=== PATIENT | female | born 1990 | race Caucasian/White ===

== ENCOUNTER 2017-08-27 22:25 | Emergency (ER) | payer MEDICAID ==
--- NOTE | 2017-08-27 22:43 | EDM.PDOCBH ---
ED HPI GENERAL MEDICAL PROBLEM - General Stated Complaint: OD Time Seen by Provider: 08/27/17 22:30 Source of Information: Reports: EMS, RN History Limitations: Reports: Altered Mental Status - History of Present Illness INITIAL COMMENTS - FREE TEXT/NARRATIVE: The patient is brought to the ED by EMS. She is apparently in treatment at [facility]. We are told that she went for a walk with a friend around 19:30, and when she returned, she was lethargic. EMS was called, however, they found the patient to be combative. EMS brought with them a prescription for the patient for gabapentin 300 mg, prescribed 90 tablets on 08/17/2017, one tablet TID, with only 12 tablets remaining. If the patient had been taking them as prescribed, there should be 57 tablets remaining, indicating 45 tablets missing. Also found on the patient was a non-labeled prescription bottle with 5 tablets of what we have identified as quetiapine (Seroquel) 200 mg. Here in the ED, the patient is found to be hemodynamically stable although lethargic, responsive to noxious stimuli, but unable to provide any history. As the patient has not previously been to this facility, we have no prior medical records to rely on. - Related Data Allergies Allergy/AdvReac Type Severity Reaction Status Date / Time No Known Allergies Allergy Verified 08/28/17 04:10 ED ROS GENERAL - Review of Systems Review Of Systems: Unable To Obtain ED EXAM, BEHAVIORAL HEALTH - Physical Exam Exam: See Below Exam Limited By: Altered Mental Status General Appearance: WD/WN, No Apparent Distress, Lethargic (responds to noxous stimuli) Eye Exam: Bilateral Eye: Normal Inspection Ears: Normal External Exam Nose: Normal Inspection, No Blood Throat/Mouth: Normal Inspection, Normal Lips, No Airway Compromise Head: Atraumatic, Normocephalic Neck: Normal Inspection, Full Range of Motion Respiratory/Chest: No Respiratory Distress, Lungs Clear, Normal Breath Sounds, No Accessory Muscle Use Cardiovascular: Normal Peripheral Pulses, Regular Rate, Rhythm, No Edema, No Gallop, No JVD, No Murmur, No Rub GI/Abdominal: Normal Bowel Sounds, Soft, Non-Tender, No Organomegaly, No Distention, No Abnormal Bruit, No Mass (Female) Exam: Deferred Rectal (Female) Exam: Deferred Back Exam: Normal Inspection, Full Range of Motion, NT Extremities: Normal Inspection, Normal Range of Motion, No Pedal Edema, Normal Capillary Refill Neurological: No Motor/Sensory Deficits (moves all 4 extremities spontaneously) Psychiatric: Other (Unable to assess) Skin Exam: Warm, Dry, Intact, Normal color, No rash COURSE, BEHAVIORAL HEALTH COMP - Course Vital Signs: Last Vital Signs Temp 36.6 C 08/27/17 22:49 Pulse 66 08/27/17 22:49 Resp 22 H 08/27/17 22:49 BP 107/89 08/27/17 22:49 Pulse Ox 100 08/27/17 22:49 Orders, Labs, Meds: Active Orders 24 hr Category Date Time Status EKG Documentation Completion [RC] STAT Care 08/27/17 22:43 Active DRUG SCREEN, URINE [URCHEM] Stat Lab 08/27/17 22:46 Ordered HCG QUALITATIVE,URINE [URCHEM] Stat Lab 08/27/17 22:46 Ordered Laboratory Tests 08/27/17 08/27/17 08/27/17 Range/Units 22:46 22:46 22:46 WBC 11.43 H (3.98-10.04) K/mm3 RBC 5.21 (3.98-5.22) M/mm3 Hgb 13.2 (11.2-15.7) gm/L Hct 40.8 (34.1-44.9) % MCV 78.3 L (79.4-94.8) fl MCH 25.3 L (25.6-32.2) pg MCHC 32.4 (32.2-35.5) g/dl RDW Std Deviation 43.3 (36.4-46.3) fL Plt Count 403 H (182-369) K/mm3 MPV 10.1 (9.4-12.3) fl Neutrophils % (Manual) 69 H (40-60) % Band Neutrophils % 0 (0-10) % Lymphocytes % (Manual) 27 (20-40) % Atypical Lymphs % 0 % Monocytes % (Manual) 2 (2-10) % Eosinophils % (Manual) 2 (0.7-5.8) % Basophils % (Manual) 0 L (0.1-1.2) Platelet Estimate Increased RBC Morph Comment Normal Sodium (136-145) mEq/L Potassium (3.5-5.1) mEq/L Chloride (98-107) mEq/L Carbon Dioxide (21-32) mEq/L Anion Gap (5-15) BUN (7-18) mg/dL Creatinine (0.55-1.02) mg/dL Est Cr Clr Drug Dosing Estimated GFR (MDRD) (>60) mL/min BUN/Creatinine Ratio (14-18) Glucose (74-106) mg/dL Calcium (8.5-10.1) mg/dL Total Bilirubin (0.2-1.0) mg/dL AST (15-37) U/L ALT (14-59) U/L Alkaline Phosphatase (46-116) U/L Total Protein (6.4-8.2) g/dl Albumin (3.4-5.0) g/dl Globulin gm/dL Albumin/Globulin Ratio (1-2) TSH 3rd Generation (0.358-3.74) uIU/mL Urine HCG, Qual Negative (NEGATIVE) Salicylates (2.8-20) mg/dL Urine Opiates Screen Negative (NEGATIVE) Ur Buprenorphine Scrn Negative (NEGATIVE) Ur Oxycodone Screen Negative (NEGATIVE) Urine Methadone Screen Negative (NEGATIVE) Ur Propoxyphene Screen Negative (NEGATIVE) Acetaminophen (10-30) ug/mL Ur Barbiturates Screen Negative (NEGATIVE) Ur Tricyclics Screen Negative (NEGATIVE) Ur Phencyclidine Scrn Negative (NEGATIVE) Ur Amphetamine Screen Negative (NEGATIVE) U Methamphetamines Scrn Negative (NEGATIVE) U Benzodiazepines Scrn Negative (NEGATIVE) U Cocaine Metab Screen Negative (NEGATIVE) U Marijuana (THC) Screen Negative (NEGATIVE) Ethyl Alcohol (0.00) gm% 08/27/17 08/27/17 Range/Units 22:46 22:46 WBC (3.98-10.04) K/mm3 RBC (3.98-5.22) M/mm3 Hgb (11.2-15.7) gm/L Hct (34.1-44.9) % MCV (79.4-94.8) fl MCH (25.6-32.2) pg MCHC (32.2-35.5) g/dl RDW Std Deviation (36.4-46.3) fL Plt Count (182-369) K/mm3 MPV (9.4-12.3) fl Neutrophils % (Manual) (40-60) % Band Neutrophils % (0-10) % Lymphocytes % (Manual) (20-40) % Atypical Lymphs % % Monocytes % (Manual) (2-10) % Eosinophils % (Manual) (0.7-5.8) % Basophils % (Manual) (0.1-1.2) Platelet Estimate RBC Morph Comment Sodium 143 (136-145) mEq/L Potassium 3.6 (3.5-5.1) mEq/L Chloride 104 (98-107) mEq/L Carbon Dioxide 26 (21-32) mEq/L Anion Gap 16.6 H (5-15) BUN 21 H (7-18) mg/dL Creatinine 0.9 (0.55-1.02) mg/dL Est Cr Clr Drug Dosing TNP Estimated GFR (MDRD) > 60 (>60) mL/min BUN/Creatinine Ratio 23.3 H (14-18) Glucose 101 (74-106) mg/dL Calcium 9.2 (8.5-10.1) mg/dL Total Bilirubin 0.2 (0.2-1.0) mg/dL AST 18 (15-37) U/L ALT 23 (14-59) U/L Alkaline Phosphatase 80 (46-116) U/L Total Protein 7.6 (6.4-8.2) g/dl Albumin 4.0 (3.4-5.0) g/dl Globulin 3.6 gm/dL Albumin/Globulin Ratio 1.1 (1-2) TSH 3rd Generation 0.751 (0.358-3.74) uIU/mL Urine HCG, Qual (NEGATIVE) Salicylates 2.0 L (2.8-20) mg/dL Urine Opiates Screen (NEGATIVE) Ur Buprenorphine Scrn (NEGATIVE) Ur Oxycodone Screen (NEGATIVE) Urine Methadone Screen (NEGATIVE) Ur Propoxyphene Screen (NEGATIVE) Acetaminophen 0 L (10-30) ug/mL Ur Barbiturates Screen (NEGATIVE) Ur Tricyclics Screen (NEGATIVE) Ur Phencyclidine Scrn (NEGATIVE) Ur Amphetamine Screen (NEGATIVE) U Methamphetamines Scrn (NEGATIVE) U Benzodiazepines Scrn (NEGATIVE) U Cocaine Metab Screen (NEGATIVE) U Marijuana (THC) Screen (NEGATIVE) Ethyl Alcohol 0.32 (0.00) gm% Medical Clearance: 08/28/17 02:44 Notified that the patient refused to have an ECG done. The remainder of her workup is unremarkable, with the exception of an EtOH level elevated at 0.32. The plan will be to keep the patient in the ED overnight to sober up, and she can likely be discharged home safely in the morning. 08/28/17 03:20 The patient is now awake. She told Chrissy EID that she wants to go home, but then she also said that she wants to eat. She was offered a turkey sandwich, but stated that she did not want a turkey sandwich, that she wanted hot food. I then went and talked to the patient. She wanted to speak to the person that brought her here. I explained that that person is not here in the ED. She asked why she is here. I explained that after she and a friend when walking, she was found to be lethargic, causing concern, prompting EMS to be called, and that she was then combative with EMS. The patient confirmed that she does not have any recollection of that. She then stated that she just wants to eat. We will get her a turkey sandwich. If the patient truly wants to leave, I do not have any legal reason to hold her , as public intoxication is not against the law in [place]. 08/28/17 04:06 The patient told Janis EID that she took excess gabapentin pills a few nights ago, not tonight. [facility] has been contacted. They will come to get the patient. Departure - Departure Time of Disposition: 04:06 Disposition: Home, Self-Care 01 Condition: Fair Clinical Impression: Alcohol intoxication - Discharge Information Referrals: PCP,None [Primary Care Provider] - Additional Instructions: You were seen in the emergency room after being found lethargic after taking a walk at [facility]. Workup in the ER included blood work, a urine drug screen, a urine test, and an ECG. Your workup was unremarkable, with the exception of your alcohol level, significantly elevated at 0.32. For comparative purposes, 0.32 is 4 times the upper legal limit for driving. You are being returned to [facility]. If any other problems, please do not hesitate to return to the ER. - My Orders Last 24 Hours: My Active Orders 08/27/17 22:43 EKG Documentation Completion [RC] STAT 08/27/17 22:46 DRUG SCREEN, URINE [URCHEM] Stat HCG QUALITATIVE,URINE [URCHEM] Stat - Assessment/Plan Last 24 Hours: My Active Orders 08/27/17 22:43 EKG Documentation Completion [RC] STAT 08/27/17 22:46 DRUG SCREEN, URINE [URCHEM] Stat HCG QUALITATIVE,URINE [URCHEM] Stat
[2017-08-27 23:30] LABS: ACETAMINOPHEN 0 ug/mL (10-30)
== END 2017-08-28 04:13 | disposition home or self-care (01) ==
LOC: JD.ED 22:25 → EDBD 22:25 → JD.ED 08-28 04:13
DX: F10.129 Alcohol abuse with intoxication, unspecified (principal); Y90.0 Blood alcohol level of less than 20 mg/100 ml
CPT/HCPCS: 36415; 80053; 80306; 81025; 84443; 85025; 99285; G0480; 93010; 99284